=== PATIENT | female | born 1995 | race Caucasian/White ===

== ENCOUNTER 2019-10-08 07:56 | Emergency (ER) | payer BC ==
[2019-10-08] MEDS ORDERED: ONDANSETRON 4 MG TAB.RAPDIS PO ONE (08:05)
[2019-10-08 08:29] LABS: APPEARANCE,URINE SLIGHTLY-CLOUDY; BILIRUBIN,URINE NEGATIVE (NEGATIVE); COLOR,URINE YELLOW; GLUCOSE, URINE NEGATIVE (NEGATIVE); KETONES,URINE NEGATIVE (NEGATIVE); LEUKOCYTE ESTERASE,URINE TRACE (NEGATIVE); NITRITE,URINE NEGATIVE (NEGATIVE); PROTEIN,URINE 100 mg/dL (NEGATIVE); URINE SPECIFIC GRAVITY 1.029; UROBILINOGEN,URINE NEGATIVE mg/dL (<2.0)
[2019-10-08] MEDS ORDERED: KETOROLAC TROMETHAMINE INJ/PF 30 MG/1 ML SDV IV ONE (10:21)
[2019-10-08] MEDS ORDERED: NORMAL SALINE 1000 ML 1,000 ML IV ONE (10:22)
--- NOTE | 2019-10-08 10:23 | ER Document Report ---
ED General - General Chief Complaint: Back Pain Stated Complaint: BACK PAIN,CHEST TIGHTNESS Time Seen by Provider: 10/08/19 10:20 TRAVEL OUTSIDE OF THE [place] IN LAST 30 DAYS: No - HPI Notes: 24-year-old female to the emergency department with complaints of right flank and right upper quadrant abdominal pain with nausea and vomiting that awoke her from sleep this morning. She states she awoke with the pain in her back and radiated around to the front of her abdomen. She states that she took some ibup rofen and try to put a heat pack on it but it did not help. She states that she then began to have vomiting. She states she is vomited several times. She denies any fevers or chills. She denies any recent travel or change in diet. She states that she still has her gallbladder. She denies any frequent and heavy alcohol use. She denies any chest pain or shortness of breath. She denies worsening pain with movement. She also states that she has been having her period for about 1 month. She denies any lower abdominal cramping. - Related Data Allergies/Adverse Reactions: latex [Latex] Allergy (Verified 10/08/19 08:05) Home Medications: METFORMIN AND CONTROL Past Medical History - General Information source: Patient - Social History Smoking Status: Never Smoker Frequency of alcohol use: None Drug Abuse: None Lives with: Spouse/Significant other Family History: Reviewed & Not Pertinent Patient has suicidal ideation: Yes Patient has homicidal ideation: Yes - Immunizations Hx Diphtheria, Pertussis, Tetanus Vaccination: - unknown Review of Systems - Review of Systems Constitutional: denies: Chills, Fever EENT: No symptoms reported Cardiovascular: denies: Chest pain, Palpitations, Heart racing, Orthopnea, Dyspnea, Syncope, Dizziness, Lightheaded Respiratory: denies: Cough, Short of breath Gastrointestinal: Abdominal pain, Nausea, Vomiting. denies: Diarrhea Genitourinary: See HPI, Flank pain. denies: Frequency Physical Exam - Vital signs Vitals: Temp Pulse Resp BP Pulse Ox 98.4 F 78 15 138/70 H 100 10/08/19 08:04 10/08/19 08:04 10/08/19 08:04 10/08/19 08:04 10/08/19 08:04 Interpretation: Normal - General General appearance: Appears well, Alert In distress: None - HEENT Head: Normocephalic, Atraumatic Eyes: Normal Pupils: PERRL - Respiratory Respiratory status: No respiratory distress Chest status: Nontender. No: Accessory muscle use Breath sounds: Normal. No: Rales, Rhonchi, Wheezing Chest palpation: Normal - Cardiovascular Rhythm: Regular Heart sounds: Normal auscultation Murmur: No - Abdominal Inspection: Morbidly Obese Distension: No distension Bowel sounds: Normal Tenderness: Tender - There is mild tenderness to palpation in the right upper quadrant and epigastrium. There is negative Vasquez sign. There is mild tenderness to palpation over the right CVA region. Negative McBurney's point. Patient is morbidly obese. No guarding or rebound Organomegaly: No organomegaly - Back Back: Normal, CVA tenderness - mild right sided CVAT. 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 No: Pronator drift Sensory: Normal - Psychological Associated symptoms: Normal affect, Normal mood - Skin Skin Temperature: Warm Skin Moisture: Dry Skin Color: Normal Course - Re-evaluation Re-evalutation: 10/08/[address] reading for no stone -- however GB appears slightly abnormal. Will send for GB US. Rounded on patient, states her pain is controlled. Noted GB US with cholethiasis and sludge. CBD is WNL. Rounded on patient and her pain has increased some but she is not vomiting. She continues to have a negative Vasquez's sign on exam. Will give pain meds Discussed patient with Dr. Beavers. We agree that since patient has better pain control. no fever, reassuring vital signs, LFTS WNL, WNL lipase, WNL bilirubin, negative vasquez's sign on exam that she can have outpatient surgical follow up. Impression: RUQ, Right flank pain, Gallstones on US with sludge. Labs reassuring. Patient currently pain free. Will discharge home with close outpatient follow up with surgery. She has been urged to return immediately if worsening symptoms such as fever, intractable vomiting/pain, yellowing of skin. Encouraged low fat diet, patient agrees with the plan. - Vital Signs Vital signs: Temp Pulse Resp BP Pulse Ox 98.4 F 78 15 138/70 H 100 10/08/19 08:04 10/08/19 08:04 10/08/19 08:04 10/08/19 08:04 10/08/19 08:04 - Laboratory Result Diagrams: 10/08/19 10:31 10/08/19 10:31 Laboratory results interpreted by me: 10/08/19 10/08/19 10/08/19 08:13 10:31 10:31 WBC 14.7 H Absolute Neuts (auto) 12.1 H Seg Neutrophils % 82.2 H Creatinine 0.47 L Glucose 116 H Urine Protein 100 H Urine Blood LARGE H Ur Leukocyte Esterase TRACE H - Diagnostic Test Radiology reviewed: Image reviewed, Reports reviewed Discharge - Discharge Clinical Impression: Right upper quadrant abdominal pain, Right flank pain, Gallbladder sludge Nausea & vomiting Qualifiers: Vomiting type: unspecified Vomiting Intractability: non-intractable Qualified Code(s): R11.2 - Nausea with vomiting, unspecified Cholelithiasis Qualifiers: Cholelithiasis location: gallbladder Cholecystitis presence: without cholecystitis Biliary obstruction: without biliary obstruction Qualified Code(s): K80.20 - Calculus of gallbladder without cholecystitis without obstruction Condition: Stable Disposition: HOME, SELF-CARE Instructions: Gallbladder Disease ([facility]), Low-Fat Diet ([facility]) Additional Instructions: FOLLOW UP WITH SURGEON WITHOUT FAIL. Return immediately if worsening symptoms such as intractable pain, intractable vomiting, fever, yellowing of skin, chest pain, shortness of breath. Take medicines as prescribed. Follow a low-fat t. Prescriptions: Oxycodone HCl/Acetaminophen [Percocet 5-325 mg Tablet] 1 tab PO Q6H PRN #12 tablet PRN Reason: Ondansetron [Zofran Odt 4 mg Tablet] 1 - 2 tab PO Q4H PRN #15 tab.rapdis PRN Reason: For Nausea/Vomiting Forms: Return to Work Referrals: LORI ESCUDERO MD [ACTIVE STAFF] - Follow up in 1 week (for surgical follow up)
[2019-10-08 10:40] LABS: ABSOLUTE BASOPHILS # (AUTO) 0.1 10^3/uL (0.0-0.2); ABSOLUTE MONOCYTES (AUTO) 0.5 10^3/uL (0.1-1.4); ABSOLUTE NEUT (AUTO) 12.1 10^3/uL (1.7-8.2); BASOPHILS % (AUTO) 0.6 % (0-2); EOSINOPHILS % (AUTO) 0.2 % (0-6); HEMATOCRIT 36.3 % (36.0-47.0); HEMOGLOBIN 12.6 g/dL (12.0-15.5); LYMPHOCYTES % (AUTO) 13.8 % (13-45); MEAN CORPUSCULAR HEMOGLOBIN 29.6 pg (27.0-33.4); MEAN CORPUSCULAR HGB CONC 34.8 g/dL (32.0-36.0); MEAN CORPUSCULAR VOLUME 85 fl (80-97); MONOCYTES % (AUTO) 3.2 % (3-13); PLATELET COUNT 375 10^3/uL (150-450); RED BLOOD COUNT 4.26 10^6/uL (3.72-5.28); RED CELL DISTRIBUTION WIDTH 13.6 % (11.5-14.0); SEGMENTED NEUTROPHILS % (AUTO) 82.2 % (42-78); TOTAL CELLS COUNTED % (AUTO) 100 %; WHITE BLOOD COUNT 14.7 10^3/uL (4.0-10.5)
[2019-10-08 10:56] LABS: ANION GAP 11 (5-19); BLOOD UREA NITROGEN 13 mg/dL (7-20); CALCIUM 9.7 mg/dL (8.4-10.2); CARBON DIOXIDE 26 mmol/L (22-30); CHLORIDE 102 mmol/L (98-107); GLUCOSE 116 mg/dL (75-110); POTASSIUM 4.6 mmol/L (3.6-5.0)
[2019-10-08] MEDS ORDERED: ONDANSETRON HCL INJ/PF 4 MG/2 ML SDV IV ONE (11:26)
[2019-10-08] MEDS ORDERED: MORPHINE SULFATE 10 MG/ML INJ IV ONE ×2 (11:26→13:52)
--- NOTE | 2019-10-08 11:41 | RADIOLOGY REPORT (SQ) ---
EXAM DESCRIPTION: CT ABD/PELVIS NO ORAL OR IV COMPLETED DATE/TIME: 10/08/2019 10:56 am REASON FOR STUDY: flank pain, NV, blood in urine COMPARISON: None. TECHNIQUE: CT scan of the abdomen and pelvis performed without intravenous or oral contrast. Images reviewed with lung, soft tissue, and bone windows. Reconstructed coronal and sagittal MPR images revi ewed. All images stored on PACS. All CT scanners at this facility use dose modulation, iterative reconstruction, and/or weight based d osing when appropriate to reduce radiation dose to as low as reasonably achievable (ALARA). [facility]: Dose Right [facility]: CareDose [facility]: Dose Right [facility]: Teradose 4D [facility]: Smart Presstler RADIATION DOSE: CT Rad equipment meets quality standard of care and radiation dose reduction techniq ues were employed. CTDIvol: 28.5 mGy. DLP: 1606 mGy-cm.mGy. LIMITATIONS: None. FINDINGS: LOWER CHEST: No significant findings. No nodules or infiltrates. NON-CONTRASTED LIVER, SPLEEN, ADRENALS: Evaluation limited by lack of IV contrast. Hypoattenuation t hroughout the liver in a geographic distribution compatible with steatosis. No other identified sign ificant masses. PANCREAS: No masses. No peripancreatic inflammatory changes. GALLBLADDER: No radiopaque gallstones. Gallbladder is distended measuring 4.5 cm transversely. No p ericholecystic fluid or definite wall thickening. RIGHT KIDNEY AND URETER: No suspicious masses. Assessment limited by lack of IV contrast. No signif icant calcifications. No hydronephrosis or hydroureter. LEFT KIDNEY AND URETER: No suspicious masses. Assessment limited by lack of IV contrast. No signifi cant calcifications. No hydronephrosis or hydroureter. AORTA AND RETROPERITONEUM: No aneurysm. No retroperitoneal masses or adenopathy. BOWEL AND PERITONEAL CAVITY: No obvious masses or inflammatory changes. No free fluid. APPENDIX: Normal. PELVIS, BLADDER, AND ABDOMINAL WALL:No abnormal masses. No free fluid. Bladder normal. BONES: No significant findings. OTHER: No other significant finding. IMPRESSION: 1. No evidence of nephrolithiasis or obstructive uropathy. 2. Geographic hepatic steatosis. 3. Mildly distended gallbladder without additional inflammatory change or radiopaque gallstones. Fi ndings possibly secondary to NPO status. Recommend correlation with symptomatology. COMMENT: Quality ID # [id number]: Final reports with documentation of one or more dose reduction techniques (e.g., Automated exposure control, adjustment of the mA and/or kV according to patient size, use of iterative reconstruction technique) TECHNICAL DOCUMENTATION: JOB ID: [id number] 2010 [employer]- All Rights Reserved Reading location - IP/workstation name: [email or web address]-
[2019-10-08 11:43] LABS: ALBUMIN 4.6 g/dL (3.5-5.0); ALKALINE PHOSPHATASE 85 U/L (38-126); ASPARTATE AMINO TRANSFERASE 24 U/L (14-36); BILIRUBIN,TOTAL 0.2 mg/dL (0.2-1.3); TOTAL PROTEIN 7.7 g/dL (6.3-8.2)
--- NOTE | 2019-10-08 13:43 | RADIOLOGY REPORT (SQ) ---
EXAM DESCRIPTION: U/S ABDOMEN LIMITED W/O DOP COMPLETED DATE/TIME: 10/08/2019 1:29 pm REASON FOR STUDY: RUQ/flank pain, eval GB COMPARISON: None. TECHNIQUE: Dynamic and static grayscale images acquired of the abdomen and recorded on PACS. Additio nal selected color Doppler and spectral images recorded. LIMITATIONS: Some structures incompletely visualized secondary to body habitus. FINDINGS: PANCREAS: Poorly visualized. LIVER: Enlarged measuring 19 cm. Increased echogenicity with decreased visualization of the portal t riads. LIVER VASCULATURE: Limited visualization. GALLBLADDER: Cholelithiasis and sludge. No wall thickening or pericholecystic fluid. The gallbladde r is dilated measuring up to 5.2 cm transversely. ULTRASOUND-DETECTED HEATH'S SIGN: Negative. INTRAHEPATIC DUCTS AND COMMON DUCT: CBD and intrahepatic ducts normal caliber. No filling defects. INFERIOR VENA CAVA: Normal flow. AORTA: No aneurysm. RIGHT KIDNEY: Normal size measuring 11.7 cm. Normal echogenicity. No solid or suspicious masses. No hydronephrosis. No calcifications. PERITONEAL AND RIGHT PLEURAL SPACE: No ascites or effusions. OTHER: No other significant findings. IMPRESSION: 1. Cholelithiasis and sludge with gallbladder dilation measuring up to 5.2 cm transvers nadya. No pericholecystic fluid or wall thickening however findings may be seen with early acute sherrill cystitis. Recommend correlation with patient symptoms and labs. 2. Hepatomegaly and hepatic steatosis. TECHNICAL DOCUMENTATION: JOB ID: [id number] 2010 [employer]- All Rights Reserved Reading location - IP/workstation name: [email or web address]
[2019-10-08 15:07] VITALS: BP 133/72
== END 2019-10-08 15:10 | disposition home or self-care (01) ==
LOC: ER 07:56
DX: K80.20 Calculus of gallbladder without cholecystitis without obstruction (principal); R10.11 Right upper quadrant pain; M54.9 Dorsalgia, unspecified; R07.9 Chest pain, unspecified; R11.2 Nausea with vomiting, unspecified; E66.01 Morbid (severe) obesity due to excess calories; Z91.040 Latex allergy status
CPT/HCPCS: 36415; 83690; 85025; 81025; 80076; 80048; 81001; 76705; 74176; S0119; J1885; J2270; J2405; J7030

== ENCOUNTER 2020-02-27 01:28 | Emergency (ER) | payer BC ==
[2020-02-27 01:35] VITALS: BP 131/77
== END 2020-02-27 03:17 | disposition left against medical advice (07) ==
LOC: ER 01:28
DX: Z53.21 Procedure and treatment not carried out due to patient leaving prior to being seen by health care provider (principal)

== ENCOUNTER 2020-02-27 14:52 | Observation (INO) | payer BC ==
[2020-02-27] MEDS ORDERED: HYDROCODONE/ACETAMINOPHEN 10-325 MG TABLET PO ONE (16:23)
[2020-02-27] MEDS ORDERED: ONDANSETRON 4 MG TAB.RAPDIS PO ONE (16:23)
--- NOTE | 2020-02-27 16:28 | ER Document Report ---
ED Medical Screen (RME) - General Chief Complaint: Abdominal Pain Stated Complaint: ABDOMINAL PAIN Time Seen by Provider: 02/27/20 16:15 Mode of Arrival: Ambulatory TRAVEL OUTSIDE OF THE [place] IN LAST 30 DAYS: No - HPI Notes: 02/27/20 16:24 24-year-old female with a history of PCOS presents emergency room for abdominal pain for the last 24 hours with nausea and vomiting. Patient states that she was told she had gallstones about a month ago, has not had any issues but did eat a burger and onion rings last night and this is what caused her abdominal pain. Has not tried any [id number] medications, worse with time, nothing makes better. Denies any fevers or chills, chest pain, shortness of breath, diarrhea, headache. Patient is unsure of her last menstrual cycle doing any regular from PCOS. I have greeted and performed a rapid initial assessment of this patient. A comprehensive ED assessment and evaluation of the patient, analysis of test results and completion of the medical decision making process will be conducted by additional ED providers. PHYSICAL EXAMINATION CV: s1, s2 regular LUNGS: No respiratory distress abd pain: epigastric, RUQ abd pain 02/27/20 16:27 - Related Data Allergies/Adverse Reactions: latex [Latex] Allergy (Verified 02/27/20 16:19) Past Medical History - Immunizations Hx Diphtheria, Pertussis, Tetanus Vaccination: - unknown Physical Exam - Vital signs Vitals: Temp Pulse Resp BP Pulse Ox 98.9 F 79 16 139/70 H 100 02/27/20 14:55 02/27/20 14:55 02/27/20 14:55 02/27/20 14:55 02/27/20 14:55 Course - Vital Signs Vital signs: Temp Pulse Resp BP Pulse Ox 98.9 F 79 16 139/70 H 100 02/27/20 14:55 02/27/20 14:55 02/27/20 14:55 02/27/20 14:55 02/27/20 14:55
[2020-02-27 17:27] LABS: HEMATOCRIT 41.7 % (36.0-47.0); HEMOGLOBIN 14.1 g/dL (12.0-15.5); MEAN CORPUSCULAR HEMOGLOBIN 27.7 pg (27.0-33.4); MEAN CORPUSCULAR HGB CONC 33.9 g/dL (32.0-36.0); MEAN CORPUSCULAR VOLUME 82 fl (80-97); PLATELET COUNT 426 10^3/uL (150-450); RED CELL DISTRIBUTION WIDTH 15.7 % (11.5-14.0); WHITE BLOOD COUNT 22.3 10^3/uL (4.0-10.5)
--- NOTE | 2020-02-27 17:34 | RADIOLOGY REPORT (SQ) ---
EXAM DESCRIPTION: U/S ABDOMEN LTD W/DOPPLER IMAGES COMPLETED DATE/TIME: 02/27/2020 5:19 pm REASON FOR STUDY: epigastric pain, hx of gallstones COMPARISON: 10/08/2019 TECHNIQUE: Dynamic and static grayscale images acquired of the abdomen and recorded on PACS. Adela calderón selected color Doppler and spectral images recorded. LIMITATIONS: Acoustic impedance. FINDINGS: PANCREAS: Not adequately visualized. LIVER: Hepatomegaly and fatty infiltration. No mass or intrahepatic biliary dilatation. LIVER VASCULATURE: Normal directional flow of the main portal vein and hepatic veins. GALLBLADDER: Cholelithiasis and sludge. No mural thickening or pericholecystic fluid. ULTRASOUND-DETECTED HEATH'S SIGN: Positive. INTRAHEPATIC DUCTS AND COMMON DUCT: CBD and intrahepatic ducts normal caliber. No filling defects. INFERIOR VENA CAVA: Normal flow. AORTA: No aneurysm. RIGHT KIDNEY: Normal size. Normal echogenicity. No solid or suspicious masses. No hydronephrosis. No calcifications. PERITONEAL AND RIGHT PLEURAL SPACE: No ascites or effusions. OTHER: No other significant findings. IMPRESSION: Re- demonstration of cholelithiasis and sludge without mural thickening or pericholecyst ic fluid; a sonographic Heath's sign was elicited over the course of the examination. Re- demonstra tion of hepatomegaly hepatic steatosis. TECHNICAL DOCUMENTATION: JOB ID: [id number] 2010 [employer]- All Rights Reserved Reading location - IP/workstation name: [email or web address]
[2020-02-27 17:37] LABS: ALBUMIN 4.9 g/dL (3.5-5.0); ALKALINE PHOSPHATASE 93 U/L (38-126); ANION GAP 10 (5-19); ASPARTATE AMINO TRANSFERASE 26 U/L (14-36); BILIRUBIN,TOTAL 0.5 mg/dL (0.2-1.3); BLOOD UREA NITROGEN 8 mg/dL (7-20); CALCIUM 10.1 mg/dL (8.4-10.2); CARBON DIOXIDE 28 mmol/L (22-30); CHLORIDE 100 mmol/L (98-107); GLUCOSE 108 mg/dL (75-110); POTASSIUM 4.3 mmol/L (3.6-5.0); TOTAL PROTEIN 8.3 g/dL (6.3-8.2)
[2020-02-27 18:01] LABS: ABSOLUTE MONOCYTES # (MANUAL) 0.9 10^3/uL (0.1-1.4); BASOPHILS % (MANUAL) 0 % (0-2); EOSINOPHILS % (MANUAL) 0 % (0-6); HYPERSEGMENTED NEUTROPHILS PRESENT; LYMPHOCYTES % (MANUAL) 9 % (13-45); MONOCYTES % (MANUAL) 4 % (3-13); PLATELET COMMENT ADEQUATE; SEGMENTED NEUTROPHILS % (MAN) 87 % (42-78); TOTAL CELLS COUNTED 100
[2020-02-27 18:03] LABS: BURR CELLS SLIGHT
[2020-02-27 18:04] LABS: ANISOCYTOSIS 1+; OVALOCYTES SLIGHT
[2020-02-27 19:52] LABS: APPEARANCE,URINE SLIGHTLY-CLOUDY; BILIRUBIN,URINE NEGATIVE (NEGATIVE); COLOR,URINE YELLOW; GLUCOSE, URINE NEGATIVE (NEGATIVE); KETONES,URINE NEGATIVE (NEGATIVE); LEUKOCYTE ESTERASE,URINE NEGATIVE (NEGATIVE); NITRITE,URINE NEGATIVE (NEGATIVE); PROTEIN,URINE NEGATIVE (NEGATIVE); UROBILINOGEN,URINE NEGATIVE mg/dL (<2.0)
[2020-02-27] MEDS ORDERED: MORPHINE SULFATE 10 MG/ML INJ IV ONE ×2 (20:41→23:25)
--- NOTE | 2020-02-27 20:42 | ER Document Report ---
ED GI/ <LAUREL COLLINS MILLICENT - Last Filed: 02/28/20 00:39> - General Mode of Arrival: Ambulatory Information source: Patient TRAVEL OUTSIDE OF THE [place] IN LAST 30 DAYS: No <RAYNE CASTELAN - Last Filed: 02/28/20 00:40> - General Chief Complaint: Epigastric Pain Stated Complaint: ABDOMINAL PAIN Time Seen by Provider: 02/27/20 16:15 Notes: 24-year-old female patient presents emergency department chief complaint of right upper quadrant abdominal pain and vomiting. Patient reports symptoms started last night. Patient reports being diagnosed with gallstones about 1 month ago. She states that she has not followed up on this. She reports that she has not had any pain or issues since the time of diagnosis. She has not taken any medications for her symptoms. She denies any diarrhea, fevers, chills, dysuria or urinary frequency. (RAYNE CASTELAN) - Related Data Allergies/Adverse Reactions: latex [Latex] Allergy (Verified 02/27/20 16:19) Past Medical History - General Information source: Patient - Social History Smoking Status: Never Smoker Chew tobacco use (# tins/day): No Frequency of alcohol use: Occasional Drug Abuse: Marijuana Family History: Reviewed & Not Pertinent Patient has homicidal ideation: No GI Medical History: Reports: Other - gallstones Surgical Hx: Negative - Immunizations Immunizations up to date: Yes Hx Diphtheria, Pertussis, Tetanus Vaccination: - unknown <RAYNE CASTELAN - Last Filed: 02/28/20 00:40> Review of Systems - Review of Systems Constitutional: denies: Fever EENT: No symptoms reported Cardiovascular: No symptoms reported Respiratory: No symptoms reported Gastrointestinal: Abdominal pain, Nausea, Vomiting Genitourinary: No symptoms reported Female Genitourinary: No symptoms reported Musculoskeletal: No symptoms reported Skin: No symptoms reported Hematologic/Lymphatic: No symptoms reported Neurological/Psychological: No symptoms reported <RAYNE CASTELAN - Last Filed: 02/28/20 00:40> Physical Exam <RAYNE CASTELAN - Last Filed: 02/28/20 00:40> - Vital signs Vitals: Temp Pulse Resp BP Pulse Ox 98.9 F 79 16 139/70 H 100 02/27/20 14:55 02/27/20 14:55 02/27/20 14:55 02/27/20 14:55 02/27/20 14:55 - Notes Notes: PHYSICAL EXAMINATION: GENERAL: Well-appearing, well-nourished and in no acute distress. HEAD: Atraumatic, normocephalic. EYES: Pupils equal round and reactive to light, extraocular movements intact, conjunctiva are normal. ENT: Nares patent, oropharynx clear without exudates. Moist mucous membranes. NECK: Normal range of motion, supple without lymphadenopathy LUNGS: Breath sounds clear to auscultation bilaterally and equal. No wheezes rales or rhonchi. HEART: Regular rate and rhythm without murmurs ABDOMEN: Soft, nondistended abdomen. Tenderness to the right upper quadrant with positive Vasquez sign. Female : No CVA tenderness. Musculoskeletal: Normal range of motion, no pitting or edema. No cyanosis. NEUROLOGICAL: Cranial nerves grossly intact. Normal speech, normal gait. Normal sensory, motor exams PSYCH: Normal mood, normal affect. SKIN: Warm, Dry, normal turgor, no rashes or lesions noted. (RAYNE CASTELAN) Course - Laboratory Result Diagrams: 02/27/20 16:50 02/27/20 16:50 <LAUREL COLLINS IV - Last Filed: 02/28/20 00:39> - Laboratory Result Diagrams: 02/27/20 16:50 02/27/20 16:50 <RAYNE CASTELAN - Last Filed: 02/28/20 00:40> - Re-evaluation Re-evalutation: Laboratory 02/27/20 02/27/20 02/27/20 16:50 16:50 16:50 WBC 22.3 H RBC 5.10 Hgb 14.1 Hct 41.7 MCV 82 MCH 27.7 MCHC 33.9 RDW 15.7 H Plt Count 426 Lymph % (Auto) Not Reportable Wilkinson % (Auto) Not Reportable Eos % (Auto) Not Reportable Baso % (Auto) Not Reportable Absolute Neuts (auto) Not Reportable Absolute Lymphs (auto) Not Reportable Absolute Monos (auto) Not Reportable Absolute Eos (auto) Not Reportable Absolute Basos (auto) Not Reportable Total Counted 100 Seg Neutrophils % Not Reportable Seg Neuts % (Manual) 87 H Lymphocytes % (Manual) 9 L Monocytes % (Manual) 4 Eosinophils % (Manual) 0 Basophils % (Manual) 0 Abs Neuts (Manual) 19.4 H Abs Lymphs (Manual) 2.0 Abs Monocytes (Manual) 0.9 Absolute Eos (Manual) 0.0 Abs Basophils (Manual) 0.0 Hypersegmented Neuts PRESENT Platelet Comment ADEQUATE Anisocytosis 1+ Ovalocytes SLIGHT [place] Cells SLIGHT Sodium 137.5 Potassium 4.3 Chloride 100 Carbon Dioxide 28 Anion Gap 10 BUN 8 Creatinine 0.61 Est GFR ( Amer) > 60 Est GFR (MDRD) Non-Af > 60 Glucose 108 Calcium 10.1 Total Bilirubin 0.5 Direct Bilirubin 0.0 Neonat Total Bilirubin Not Reportable Neonat Direct Bilirubin Not Reportable Neonat Indirect Bili Not Reportable AST 26 ALT 34 Alkaline Phosphatase 93 Total Protein 8.3 H Albumin 4.9 Lipase 1357.6 H Urine Color YELLOW Urine Appearance SLIGHTLY-CLOUDY Urine pH 6.0 Ur Specific [place] 1.020 Urine Protein NEGATIVE Urine Glucose (UA) NEGATIVE Urine Ketones NEGATIVE Urine Blood SMALL H Urine Nitrite NEGATIVE Urine Bilirubin NEGATIVE Urine Urobilinogen NEGATIVE Ur Leukocyte Esterase NEGATIVE Urine WBC (Auto) 1 Urine RBC (Auto) 1 Squamous Epi Cells Auto 2 Urine Mucus (Auto) MOD Urine Ascorbic Acid NEGATIVE Urine HCG, Qual NEGATIVE Abdomen Ultrasound 02/27/20 16:22 IMPRESSION: Re- demonstration of cholelithiasis and sludge without mural thickening or pericholecystic fluid; a sonographic Vasquez's sign was elicited over the course of the examination. Re- demonstration of hepatomegaly hepatic steatosis. Abdomen/Pelvis CT 02/27/20 20:30 IMPRESSION: 1. No acute findings 2. Hepatic steatosis, as on prior exam 02/27/20 23:[address] Fuchs, he will come and evaluate the patient in the emergency department. (RAYNE CASTELAN) - Vital Signs Vital signs: Temp Pulse Resp BP Pulse Ox 98.7 F 71 16 129/51 H 98 02/27/20 23:55 02/27/20 23:55 02/27/20 23:55 02/27/20 23:55 02/27/20 23:55 - Laboratory Laboratory results interpreted by me: 02/27/20 02/27/20 02/27/20 16:50 16:50 16:50 WBC 22.3 H RDW 15.7 H Seg Neuts % (Manual) 87 H Lymphocytes % (Manual) 9 L Abs Neuts (Manual) 19.4 H Total Protein 8.3 H Lipase 1357.6 H Urine Blood SMALL H Discharge - Discharge Admitting Provider: Surgicalist - [facility] Unit Admitted: Surgical Floor <LAUREL COLLINS IV - Last Filed: 02/28/20 00:39> - Discharge Admitting Provider: Surgicalist Unit Admitted: Surgical Floor <RAYNE CASTELAN - Last Filed: 02/28/20 00:40> - Discharge Clinical Impression: Acute gallstone pancreatitis Condition: Stable Disposition: ADMITTED OBSERVATION
--- NOTE | 2020-02-27 21:52 | RADIOLOGY REPORT (SQ) ---
EXAM DESCRIPTION: [facility]: CT ABDOMEN PELVIS WITH IV CONTRAST CLINICAL HISTORY: 24 years Female; abd pain, elevated lipase; TECHNIQUE: CT of the abdomen and pelvis using intravenous contrast. All CT scans at this facility use dose modulation, iterative reconstruction, and/or weight based dosing when appropriate to reduce radiation dose to as low as reasonably achievable. COMPARISON: 10/08/2019 FINDINGS: Abdomen: Stomach: No significant distention or surrounding edema. Liver: Hypodense as on prior exam, with some sparing in the left lobe. No focal lesions. No ductal distention. Gallbladder:Nondistended Pancreas:Within normal limits. No adjacent edema. No ductal distention. Spleen:Within normal limits Right kidney:No hydronephrosis. No focal lesion. Left kidney:No hydronephrosis. No focal lesion. Adrenal glands:Within normal limits Vascular structures:Within normal limits Pelvis: Small bowel:No significant distention. Appendix:Within normal limits Colon:No distention or acute pericolonic edema. No free intraperitoneal fluid or air. Bones: No acute bone findings. Bladder: Unremarkable. No pelvic mass or adenopathy. IMPRESSION: 1. No acute findings 2. Hepatic steatosis, as on prior exam
[2020-02-27] MEDS ORDERED: NORMAL SALINE 1000 ML 1,000 ML IV ONE (22:00)
[2020-02-28] MEDS ORDERED: PIPERACILLIN/TAZOBACTAM 3.375 GM VIAL IV ONE (00:07)
--- NOTE | 2020-02-28 00:35 | PDOC H&P ---
History of Present Illness History of Present Illness: IRINA TA is a 24 year old female patient presents emergency department chief complaint of right upper quadrant abdominal pain and vomiting. Patient reports symptoms started last night. Patient reports being diagnosed with gallstones about 1 month ago. She states that she has not followed up on this. She reports that she has not had any pain or issues since the time of diagnosis. She has not taken any medications for her symptoms. She denies any diarrhea, fevers, chills, dysuria or urinary frequency Past Medical History GI Medical History: Reports: Other - gallstones Social History Smoking Status: Never Smoker Electronic Cigarette use?: No Family History Family History: Reviewed & Not Pertinent Parental Family History Reviewed: No Children Family History Reviewed: NA Sibling(s) Family History Reviewed.: NA Medication/Allergy Home Medications: No Home Medications 02/27/20 Allergies/Adverse Reactions: latex [Latex] Allergy (Verified 02/27/20 16:19) Review of Systems Constitutional: PRESENT: anorexia, fatigue Eyes: ABSENT: as per HPI, visual disturbances, other Ears: ABSENT: as per HPI, hearing changes, other Nose, Mouth, and Throat: ABSENT: as per HPI, headache(s), mouth pain, sore throat, vertigo, other Breasts: ABSENT: as per HPI, other Cardiovascular: ABSENT: as per HPI, chest pain, dyspnea on exertion, edema, orthropnea, palpitations, other Respiratory: ABSENT: as per HPI, cough, dyspnea, hemoptysis, sputum, other Gastrointestinal: PRESENT: abdominal pain Genitourinary: ABSENT: as per HPI, difficulty urinating, dysuria, hematuria, nocturia, other Musculoskeletal: ABSENT: as per HPI, back pain, deformity, joint swelling, muscle weakness, other Integumentary: ABSENT: as per HPI, diaphoresis, erythema, lesions, pruritus, rash, wounds, other Neurological: ABSENT: as per HPI, abnormal gait, abnormal movements, abnormal speech, confusion, convulsions, dizziness, focal weakness, frequent falls, lack of coordination, memory loss, numbness, paresthesias, restless legs, syncope, tingling, tremor(s), vertigo, weakness, other Psychiatric: ABSENT: anxiety, depression, homidical ideation, suicidal ideation Hematologic/Lymphatic: ABSENT: easy bleeding, easy bruising Allergic/Immunologic: ABSENT: as per HPI, seasonal rhinorrhea, other Physical Exam Vital Signs: Temp Pulse Resp BP Pulse Ox 98.7 F 71 16 129/51 H 98 02/27/20 23:55 02/27/20 23:55 02/27/20 23:55 02/27/20 23:55 02/27/20 23:55 Intake & Output 02/26/20 02/27/20 02/28/20 06:59 06:59 06:59 Intake Total 1000 Balance 1000 Weight 116 kg General appearance: PRESENT: mild distress, morbidly obese Eye exam: PRESENT: EOMI Ear exam: PRESENT: normal external ear exam Mouth exam: PRESENT: moist Neck exam: PRESENT: full ROM Respiratory exam: PRESENT: clear to auscultation haider Cardiovascular exam: PRESENT: RRR Pulses: PRESENT: normal radial pulses, normal femoral pulses Vascular exam: PRESENT: normal capillary refill Breast: PRESENT: Normal GI/Abdominal exam: PRESENT: tenderness - epigastrium and ruq Rectal exam: PRESENT: deferred Extremities exam: PRESENT: full ROM Musculoskeletal exam: PRESENT: full ROM Neurological exam: PRESENT: alert, awake, oriented to person, oriented to place Psychiatric exam: PRESENT: appropriate affect Skin exam: PRESENT: dry Results Laboratory Results: 02/27/20 16:50 02/27/20 16:50 02/27/20 02/27/20 02/27/20 16:50 16:50 16:50 WBC 22.3 H RBC 5.10 Hgb 14.1 Hct 41.7 MCV 82 MCH 27.7 MCHC 33.9 RDW 15.7 H Plt Count 426 Seg Neutrophils % Not Reportable Sodium 137.5 Potassium 4.3 Chloride 100 Carbon Dioxide 28 Anion Gap 10 BUN 8 Creatinine 0.61 Est GFR ( Amer) > 60 Glucose 108 Calcium 10.1 Total Bilirubin 0.5 AST 26 Alkaline Phosphatase 93 Total Protein 8.3 H Albumin 4.9 Lipase 1357.6 H Urine Color YELLOW Urine Appearance SLIGHTLY-CLOUDY Urine pH 6.0 Ur Specific Coello 1.020 Urine Protein NEGATIVE Urine Glucose (UA) NEGATIVE Urine Ketones NEGATIVE Urine Blood SMALL H Urine Nitrite NEGATIVE Ur Leukocyte Esterase NEGATIVE Urine WBC (Auto) 1 Urine RBC (Auto) 1 Impressions: Abdomen Ultrasound 02/27/20 16:22 IMPRESSION: Re- demonstration of cholelithiasis and sludge without mural thickening or pericholecystic fluid; a sonographic Vasquez's sign was elicited over the course of the examination. Re- demonstration of hepatomegaly hepatic steatosis. Abdomen/Pelvis CT 02/27/20 20:30 IMPRESSION: 1. No acute findings 2. Hepatic steatosis, as on prior exam Assessment & Plan - Plan Summary Plan Summary: Impression gallstone pancreatitis. Plan we will admit the patient for IV hydration and observation. We will recheck and trend her lipase levels and as a decrease as expected towards normal we will plan a laparoscopic cholecystectomy to avoid future complications of gallstone pancreatitis.
[2020-02-28] MEDS ORDERED: POTASSI CL 20 MEQ/1/2NS 1L 20 MEQ/1,000 ML RTUINJ IV PRN (00:36)
[2020-02-28] MEDS ORDERED: HYDROMORPHONE HCL INJ/PF 2 MG/ML AMPULE IV PRN (00:39)
[2020-02-28 08:36] LABS: ABSOLUTE EOSINOPHILS # (AUTO) 0.2 10^3/uL (0.0-0.6); ABSOLUTE LYMPHOCYTES (AUTO) 2.6 10^3/uL (0.5-4.7); ABSOLUTE MONOCYTES (AUTO) 1.2 10^3/uL (0.1-1.4); ABSOLUTE NEUT (AUTO) 11.7 10^3/uL (1.7-8.2); BASOPHILS % (AUTO) 0.3 % (0-2); HEMATOCRIT 37.5 % (36.0-47.0); HEMOGLOBIN 12.6 g/dL (12.0-15.5); LYMPHOCYTES % (AUTO) 16.5 % (13-45); MEAN CORPUSCULAR HEMOGLOBIN 27.6 pg (27.0-33.4); MEAN CORPUSCULAR HGB CONC 33.7 g/dL (32.0-36.0); MEAN CORPUSCULAR VOLUME 82 fl (80-97); MONOCYTES % (AUTO) 7.8 % (3-13); PLATELET COUNT 365 10^3/uL (150-450); RED BLOOD COUNT 4.59 10^6/uL (3.72-5.28); RED CELL DISTRIBUTION WIDTH 16.1 % (11.5-14.0); SEGMENTED NEUTROPHILS % (AUTO) 74.4 % (42-78); TOTAL CELLS COUNTED % (AUTO) 100 %; WHITE BLOOD COUNT 15.8 10^3/uL (4.0-10.5)
[2020-02-28 08:52] LABS: ALBUMIN 4.1 g/dL (3.5-5.0); ALKALINE PHOSPHATASE 75 U/L (38-126); ANION GAP 6 (5-19); ASPARTATE AMINO TRANSFERASE 23 U/L (14-36); BILIRUBIN,TOTAL 0.7 mg/dL (0.2-1.3); BLOOD UREA NITROGEN 8 mg/dL (7-20); CARBON DIOXIDE 29 mmol/L (22-30); CHLORIDE 103 mmol/L (98-107); GLUCOSE 110 mg/dL (75-110)
[2020-02-28] MEDS ORDERED: NEOSTIGMINE METHYLSULFATE 10 MG/10 ML VIAL ONE (10:40)
[2020-02-28] MEDS ORDERED: DEXAMETHASONE SOD PHOSPHATE INJ 4 MG/1 ML VIAL ONE (10:40)
[2020-02-28] MEDS ORDERED: ROCURONIUM BROMIDE INJ 50 MG/5 ML VIAL IV ONE (10:40)
[2020-02-28] MEDS ORDERED: ONDANSETRON HCL INJ/PF 4 MG/2 ML SDV ONE (10:40)
[2020-02-28] MEDS ORDERED: GLYCOPYRROLATE 1 MG/5 ML VIAL ONE (10:40)
[2020-02-28] MEDS ORDERED: SUCCINYLCHOLINE CHLORIDE INJ 200 MG/10 ML VIAL ONE (10:40)
[2020-02-28] MEDS ORDERED: PROPOFOL INJ 200 MG/20 ML VIAL IV ONE (12:21)
[2020-02-28] MEDS ORDERED: FENTANYL CITRATE INJ/PF 250 MCG/5 ML AMPULE ONE (12:21)
[2020-02-28] MEDS ORDERED: HYDROMORPHONE HCL INJ/PF 2 MG/ML AMPULE ONE (12:21)
[2020-02-28] MEDS ORDERED: MIDAZOLAM 2 MG/2 ML INJ ONE (12:21)
[2020-02-28] MEDS ORDERED: BUPIVACAINE INJ/PF LIPOSOME/PF 266 MG/20 ML SDV ONE (12:22)
[2020-02-28] MEDS ORDERED: CEFAZOLIN INJ 1 GM VIAL ONE (13:05)
[2020-02-28] MEDS ORDERED: METRONIDAZOLE 500 MG/NS RTU 500 MG/100 ML RTUPB IV ONE (13:08)
[2020-02-28] MEDS ORDERED: FENTANYL CITRATE INJ/PF 100 MCG/2 ML AMPUL IV PRN ×3 (13:22)
[2020-02-28] MEDS ORDERED: MEPERIDINE HCL/PF INJ 25 MG/1 ML DISP.SYRIN IV PRN (13:22)
[2020-02-28] MEDS ORDERED: PROMETHAZINE HCL INJ 25 MG/1 ML VIAL IV PRN (13:22)
[2020-02-28] MEDS ORDERED: MORPHINE SULFATE 10 MG/ML INJ IV PRN (13:22)
[2020-02-28] MEDS ORDERED: DIPHENHYDRAMINE HCL 50 MG/ML VIAL IV PRN (13:22)
--- NOTE | 2020-02-28 14:36 | RADIOLOGY REPORT (SQ) ---
EXAM DESCRIPTION: CHOLANGIOGRAM OPERATIVE IMAGES COMPLETED DATE/TIME: 02/28/2020 2:21 pm REASON FOR STUDY: LAP THANIA COMPARISON: None. FLUOROSCOPY TIME: 0.4 minutes 5 images saved to PACS. TECHNIQUE: Cinegraphic images were obtained from an intraoperative cholangiogram. LIMITATIONS: None. FINDINGS: There is opacification of the bile ducts, cystic duct remnants and second portion of the d uodenum without evidence of fixed filling defect or significant extravasation. IMPRESSION: INTRAOPERATIVE CHOLANGIOGRAM. COMMENT: 12.5 mL Omnipaque 300 administered. Quality ID 145: Final reports for procedures using fluoroscopy that document radiation exposure kathy eliseo, or exposure time and number of fluorographic images (if radiation exposure indices are not avail able) TECHNICAL DOCUMENTATION: JOB ID: [id number] [place]-[id number] 2010 [employer]- All Rights Reserved Reading location - IP/workstation name: [email or web address]
--- NOTE | 2020-02-28 14:38 | Operative Report ---
Nonrecallable Operative Report DATE OF SURGERY: 02/28/20 PREOPERATIVE DIAGNOSIS: Gallstone pancreatitis POSTOPERATIVE DIAGNOSIS: Gallstone pancreatitis OPERATION: Laparoscopic cholecystectomy with intraoperative cholangiograms SURGEON: DA MURO ANESTHESIA: GA TISSUE REMOVED OR ALTERED: Gallbladder COMPLICATIONS: None ESTIMATED BLOOD LOSS: 25 cc INTRAOPERATIVE FINDINGS: See note PROCEDURE: After obtaining informed consent, the patient was taken to the operating room. General Anesthesia was induced; the arms were extended, and the abdomen was exposed, and prepped and draped in a sterile fashion. Instrumentation was set up for laparoscopic cholecystectomy. Surgical plan and surgical timeout were conducted. A vertical incision was made above the umbilicus, and a verres needle was inserted uneventfully into the peritoneal cavity. Pneumoperitoneum was established. The verres needle was removed and a 10 mm trocar was inserted and a 10 mm flexible laparoscope was inserted. Visualization of the peritoneal cavity confirmed safe uneventful entry. Under direct visualization 3 additional 5 mm ports were established, one in the subxiphoid position and second in the subcostal position. Visualization of the hepatobiliary anatomy revealed no anatomic variations. A grasper was placed on the fundus of the gallbladder and the gallbladder is elevated over the right surface of the liver; a second grasper was used to grasp the infundibulum of the gallbladder. The neck of the gallbladder and junction with the cystic duct was dissected out. The Cystic artery was in its usual location medial and cephalad to the cystic duct. The cystic artery was surrounded with a right angle clamp, clipped twice proximally and divided with laparoscopic scissors. We now opened the triangle of Calot by dividing the peritoneal reflection on both the medial and lateral sides of the cystic duct infundibular junction. The critical view was obtained. We now milked the cystic duct of any possible stones, clipped the cystic duct proximally and a cystic ductotomy was then performed intraoperative cholangiogram catheter was placed into the cystic duct intraoperative cholangiogram revealed no evidence of common bile duct stones good flow into the duodenum as well the right and left hepatic ducts seen. The cystic duct was then doubly ligated with an Endo Clip on the stump side and 1 in the specimen side. The gallbladder was now removed from the undersurface of the liver using hook cautery dissection. Graspers were repositioned and the gallbladder was removed uneventfully from the abdominal cavity through the super umbilical port site incision. The specimen was examined, then passed off to pathology for permanent analysis. We returned to the peritoneal cavity check for bleeding, and evidence of bile leak, and there was none. We Confirmed satisfactory placement of clips on cystic duct and cystic artery were secured . At this point we felt the operation was complete. The subcutaneous tissue was then anesthetized with quarter percent Marcaine Sponge and needle counts are correct. All ports removed under direct visualization pneumoperitoneum evacuated, and 5 mm port wounds closed with 3-0 Vicryl suture, benzoin and Steri-Strips. The patient was extubated, and taken to the recovery room in stable condition. Estimated blood loss less than 25 cc sponge needle counts correct x2
--- NOTE | 2020-02-28 14:41 | Discharge Summary ---
Discharge Summary (SDC) - Discharge Final Diagnosis: Gallstone pancreatitis Date of Surgery: 02/28/20 Discharge Date: 02/28/20 Condition: Good Treatment or Instructions: Patient can resume a regular low-fat diet Prescriptions: Hydrocodone/Acetaminophen [Townsend 10-325 mg Tablet] 1 tab PO Q6HP PRN #15 tablet PRN Reason: Discharge Diet: As Tolerated Discharge Activity: Activity As Tolerated, No Lifting Over 10 Pounds Report the Following to Your Physician Immediately: Shortness of Breath, Nausea, Vomiting, Increase in Pain, Signs of Hyperglycemia, Yellow Skin, Fever over 101 Degrees - Patient needs a follow-up appointment in 7 to 10 days in surgical clinic
[2020-02-28 17:33] VITALS: BP 109/56
== END 2020-02-28 19:00 | disposition home or self-care (01) ==
LOC: ER 14:52 → INTOOBSV 02-28 00:59 → EH 02-28 00:59 → 4S 02-28 04:32
PROVIDERS: ATTEND Surgery
DX: K80.12 Calculus of gallbladder with acute and chronic cholecystitis without obstruction (principal); E66.01 Morbid (severe) obesity due to excess calories; F12.10 Cannabis abuse, uncomplicated; E28.2 Polycystic ovarian syndrome; Z03.818 Encounter for observation for suspected exposure to other biological agents ruled out
CPT/HCPCS: 96376; 99285; 96361; 96374; 36415 ×2; 83690 ×2; 85025 ×2; 87635; 81025; 80076; 80048; 80053; 81001; 88304 ×2; 74300; 76705; 93976; 74177; 94799; 47563; G0378; J2250; J0690; J3490 ×3; J1100; J3480; S0119; J3010; J2270; J2710; J1170; J0330; J2405; J7030; J2704; J2543; C9290; C9803; 790; 99140